=== PATIENT | male | born 1970 | race Caucasian/White ===

== ENCOUNTER 2017-12-06 06:24 | Inpatient (IN) | payer OTHER ==
[~2017-12-06] VITALS: Ht 180.3 cm; Wt 123.4 kg
[~2017-12-06 06:24] MED LIST: AMOXICILLIN875 MG PO; NORCO 5-325 TA1 EACH PO; PRINIVIL20 MG PO
[2017-12-06 06:34] VITALS: BP 146/101
[2017-12-06 06:53] LABS: ABSOLUTE BASOPHILS 0.1 thou/uL (0.0-0.2); ABSOLUTE EOSINOPHILS 0.1 thou/uL (0.0-0.7); ABSOLUTE LYMPHOCYTES 2.2 thou/uL (0.8-5.3); ABSOLUTE MONOCYTES 0.6 thou/uL (0.0-1.2); ABSOLUTE NEUTROPHILS 2.9 thou/uL (1.6-8.1); BASOPHILS 1.1 %; EOSINOPHILS 1.4 %; HEMOGLOBIN 17.5 gm/dL (14.0-18.0); LYMPHOCYTES 37.6 %; MCH 33.5 pg (26.0-34.0); MCHC 34.4 g/dL (28.0-37.0); MCV 97.4 fL (80.0-100.0); MONOCYTES 10.9 %; MPV 8.1 fl. (7.2-11.1); NUCLEATED RBCS 0 /100WBC; PLATELET COUNT* 204 thou/uL (150-400); RBC 5.23 mil/uL (4.50-6.00); RDW-CV 13.3 % (10.5-14.5); WBC 5.8 thou/uL (4.0-11.0)
[2017-12-06 06:57] LABS: URINE BILIRUBIN NEGATIVE (Negative); URINE BLOOD 1+ (Negative); URINE CLARITY CLEAR; URINE COLOR YELLOW; URINE GLUCOSE-RANDOM TRACE (Negative); URINE KETONES TRACE (Negative); URINE LEUKOCYTES-REFLEX NEGATIVE (Negative); URINE NITRITE-REFLEX NEGATIVE (Negative); URINE PROTEIN TRACE (Negative); URINE SPECIFIC GRAVITY 1.025 (1.005-1.030)
[2017-12-06 07:01] LABS: CALCIUM 9.5 mg/dL (8.5-10.1); CREATININE 1.1 mg/dL (0.6-1.3); POTASSIUM 4.6 mmol/L (3.5-5.1)
[2017-12-06 07:06] LABS: TOTAL BILIRUBIN 0.7 mg/dL (<0.1-1.0)
[2017-12-06 07:06] LABS: AMP/METHAMP Negative (Negative); BARBITURATES Negative (Negative); BENZODIAZEPINES Negative (Negative); COCAINE Negative (Negative); METHADONE Negative (Negative); OPIATES Negative (Negative); PCP Negative (Negative); THC Negative (Negative)
[2017-12-06 07:09] LABS: BACTERIA-REFLEX 1-9 Few /HPF (None Seen); CASTS None Seen /LPF (None Seen); CRYSTALS None Seen /LPF (None Seen); MUCUS None Seen strn/LPF (None Seen); SQUAMOUS 0-3 Few /LPF (0-3); URINE RBC 3-10 Few /HPF (0-2); URINE WBC-REFLEX 0-5 Rare /HPF (0-5)
[2017-12-06 07:15] LABS: ALCOHOL < 10 mg/dL (<10); SALICYLATE < 2.8 mg/dL (2.8-20.0)
[2017-12-06 07:16] LABS: ACETAMINOPHEN < 2 ug/mL (10-30)
[2017-12-06 09:33] VITALS: BP 148/86
[2017-12-06 11:00] VITALS: BP 148/86
[2017-12-06 16:00] VITALS: BP 134/91
[2017-12-06 20:00] VITALS: BP 141/83
[2017-12-07 04:20] VITALS: BP 119/80
[2017-12-07 04:29] LABS: ABSOLUTE BASOPHILS 0.1 thou/uL (0.0-0.2); ABSOLUTE EOSINOPHILS 0.1 thou/uL (0.0-0.7); ABSOLUTE LYMPHOCYTES 2.1 thou/uL (0.8-5.3); ABSOLUTE MONOCYTES 0.8 thou/uL (0.0-1.2); BASOPHILS 0.8 %; EOSINOPHILS 1.3 %; HEMATOCRIT 46.5 % (42.0-52.0); HEMOGLOBIN 16.2 gm/dL (14.0-18.0); LYMPHOCYTES 29.6 %; MCH 34.1 pg (26.0-34.0); MCHC 34.8 g/dL (28.0-37.0); MONOCYTES 11.3 %; MPV 8.2 fl. (7.2-11.1); NUCLEATED RBCS 0 /100WBC; PLATELET COUNT* 185 thou/uL (150-400); RBC 4.75 mil/uL (4.50-6.00); RDW-CV 13.2 % (10.5-14.5); WBC 7.1 thou/uL (4.0-11.0)
[2017-12-07 04:56] LABS: CALCIUM 8.8 mg/dL (8.5-10.1); CREATININE 1.2 mg/dL (0.6-1.3); POTASSIUM 4.8 mmol/L (3.5-5.1)
[2017-12-07 07:59] VITALS: BP 145/100
[2017-12-07 10:40] VITALS: BP 145/100
--- NOTE | 2017-12-07 15:05 | EKG ---
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1970 Requested By: Tammy Sampson Order Number: [id number] Anni MD: Dustin Pink Measurements Intervals [place]z Rate: 68 P: 42 NC: 154 QRS: -33 QRSD: 97 T: 10 QT: 395 QTc: 421 Interpretive Statements Sinus rhythm Abnormal R-wave progression, early transition Inferior infarct, old Compared to ECG 09/26/2008 08:56:05 Myocardial infarct finding now present Electronically Signed On 12-07-2017 15:05:23 CDT by Dustin Pink [email or web address] <ELECTRONICALLY SIGNED> By: Dustin Pink MD, LOCATED WITHIN [facility] 12/07/17 1505 1700 1700 Dustin Pink MD, LOCATED [facility] /EPI
[2017-12-07] MEDS ORDERED: PROCTOFOAM15 GM TOP (15:32)
[2017-12-07 15:43] VITALS: BP 145/100
[2017-12-08 07:10] LABS: HEPATITIS B SURFACE AG Negative (Negative)
--- NOTE | 2017-12-23 13:09 | CON ---
[address] [address] CONSULTATION Name: DUSTIN LEPE JR Room: [address] IN M.R.#: [id number] Admission: 12/06/17 Attend Phys: Candelario Hensley MD Discharge: 12/07/17 Date of : 72 Report #: [id number] THIS REPORT FOR: //name// CC: Candelario Marino DICTATED BY: Tammy Sampson [facility] DATE OF SERVICE: 12/06/2017 PRIMARY CARE PHYSICIAN: Dr. Dustin Marino Please note at the time of this dictation, the patient was seen and physically examined by myself. REASON FOR CONSULTATION: Rectal bleeding. HISTORY OF PRESENT ILLNESS: This is a 47-year-old male who presented to the Emergency Room with having a 2-week history of having some rectal bleeding that is mainly noted after a bowel movement; however, he has been noticing that several times during this past two weeks that he woke up and he had soiling of bright red blood on his underwear and on the sheets of his bed. He states that this morning when he went to have a bowel movement, he noticed some diarrhea at first and then had a formed stool and when he wiped there was excessive amount of bright red blood, but then looking into the toilet it was a large amount of blood more so than what he has ever had before. He also noted having some left lower quadrant discomfort prior to this bowel movement as well. The patient states his bowels are very regular. He goes every morning after arising that are soft and formed except for these past two weeks when he has noted some blood in the toilet, but more so this morning. He has never had any upper or lower endoscopy studies done at this time. ALLERGIES: SILK. MEDICATIONS: From home include lisinopril. PAST MEDICAL HISTORY: Hypertension. PAST SURGICAL HISTORY: He has dental implants. FAMILY HISTORY: Maternal grandmother had pancreatic cancer. SOCIAL HISTORY: Denies any tobacco use or illegal drug use; however, he does drink a 6-[place] [address] CONSULTATION Name: DUSTIN LEPE JR Room: [address]#: [id number] Admission: 12/06/17 Attend Phys: Candelario Hensley MD Discharge: 12/07/17 Date of : 72 Report #: [id number] REVIEW OF SYSTEMS: Twelve-point review of systems is essentially negative except what is mentioned in the HPI. PHYSICAL EXAMINATION: VITAL SIGNS: Temperature 36.7, pulse 74, respirations 16 and blood pressure 147/87. HEART: Regular rate and rhythm. LUNGS: Clear. ABDOMEN: Soft and rotund. Positive bowel sounds in all 4 quadrants with some slight left lower quadrant tenderness noted to palpation. LABORATORY DATA: Hemoglobin on admission was 17.5, hematocrit is 51, white count is 5.8 and platelets 209. Sodium 141, potassium 4.6, chloride 103, CO2 of 28, BUN is 8, creatinine 1.1, GFR 72 and glucose is 125. Total bilirubin 0.7, alkaline phosphatase 60, ALT [address] and AST is 51. CT of the abdomen and pelvis was essentially negative. IMPRESSION: 1. Rectal bleeding for the last two weeks, worse this a.m. 2. Left lower quadrant pain. 3. Elevated LFTs. 4. Family history of pancreatic cancer. 5. Alcohol misuse, 6 pack daily. PLAN: 1. Colonoscopy tomorrow with Dr. Rojas. 2. We will check an acute hepatitis panel. 3. We will start prep later today and clear liquids. 4. Further recommendations to be made once the procedure has been performed tomorrow. Thank you for allowing us to participate in this patient's care. Please do not hesitate to call with any questions in regard to this consult. ADDENDUM The patient presents with left lower quadrant abdominal pain and rectal bleeding. He gives history of alcohol consumption up to 6-pack of beer per day. He has elevated liver enzymes with ALT more than AST, which is not typical of alcoholic liver disease. CT of abdomen and pelvis essentially is unrevealing. He has never had a colonoscopy and reports [place] [address] CONSULTATION Name: DUSTIN LEPE JR Room: [address] IN M.R.#: [id number] Admission: 12/06/17 Attend Phys: Candelario Hensley MD Discharge: 12/07/17 Date of : 72 Report #: [id number] We will go ahead and perform a colonoscopy tomorrow. Viral hepatitis serology has been ordered. If this is negative, we will consider ultrasound of liver. <ELECTRONICALLY SIGNED> By: Kim Rojas MD 12/23/17 1309 1432 [id number] Rojas MD /nt
--- NOTE | 2017-12-23 13:09 | CON ---
[address] [address] CONSULTATION Name: LEPEDUSTIN Diaz JR Room: [address] IN M.R.#: [id number] Admission: 12/06/17 Attend Phys: Candelario Hensley MD Discharge: 12/07/17 Date of : 72 Report #: [id number] THIS REPORT FOR: //name// CC: Candelario Marino DATE OF SERVICE: 12/06/2017 ADDENDUM Consult number is [id number]. The addendum will dictate as follow. The patient presents with left lower quadrant abdominal pain and rectal bleeding. He gives history of alcohol consumption up to 6-pack of beer per day. He has elevated liver enzymes with ALT more than AST, which is not typical of alcoholic liver disease. CT of abdomen and pelvis essentially is unrevealing. He has never had a colonoscopy and reports family history of pancreatic cancer. We will go ahead and perform a colonoscopy tomorrow. Viral hepatitis serology has been ordered. If this is negative, we will consider ultrasound of liver. <ELECTRONICALLY SIGNED> By: Kim Rojas MD 12/23/17 1309 1716 0003Kim Rojas MD /nt
== END 2017-12-07 16:05 | disposition home or self-care (01) | DRG 379 ==
LOC: M.ERS 06:24 → M.TBA-ER 08:25 → M.ORTHSURG 08:25
PROVIDERS: Nurse Practitioner Adult Health; Personal Emergency Response Attendant; ADMIT Internal Medicine
PROC: 0DBP8ZZ Excision of Rectum, Via Natural or Artificial Opening Endoscopic (ICD-10-PCS; principal; 2017-12-07)
PROC: 0DBK8ZX Excision of Ascending Colon, Via Natural or Artificial Opening Endoscopic, Diagnostic (ICD-10-PCS; principal; 2017-12-07)
PROC: 0DBL8ZX Excision of Transverse Colon, Via Natural or Artificial Opening Endoscopic, Diagnostic (ICD-10-PCS; principal; 2017-12-07)
DX: K92.2 Gastrointestinal hemorrhage, unspecified (principal); I10 Essential (primary) hypertension; F17.210 Nicotine dependence, cigarettes, uncomplicated; E86.0 Dehydration; Z72.89 Other problems related to lifestyle; Z91.048 Other nonmedicinal substance allergy status; Z80.0 Family history of malignant neoplasm of digestive organs